=== PATIENT | female | born 1955 | race Two or more races ===

== ENCOUNTER 2018-11-04 04:31 | Inpatient (IN) | payer MEDICAID, OTHER ==
[~2018-11-04] VITALS: Ht 170.2 cm; Wt 98.5 kg
--- NOTE | 2018-11-04 03:43 | NUR ---
DR. HARTLEY MADE AWARE PT IS IN ROOM FROM PACU S/P LAPAROSCOPIC APPENDECTOMY.
[2018-11-04] MEDS ORDERED: ONDANSETRON ODT 4 MG TAB PO ONE (05:00)
[2018-11-04 06:15] LABS: Urine Bacteria FEW /hpf (None Seen); Urine Blood Negative /uL (Negative); Urine Specific Gravity 1.021 (1.001-1.035); Urine WBC <1 /hpf (0 - 5)
[2018-11-04] MEDS ORDERED: SODIUM CHLORIDE 0.9% 1,000 ML IV ONE (06:15)
[2018-11-04] MEDS ORDERED: cefTRIAXone 1GM/50ML D5W 50 ML IV ONE (06:15)
[2018-11-04] MEDS ORDERED: MORPHINE SULFATE 4 MG/ML SYR/VIAL IV ONE (06:45)
[2018-11-04 06:49] LABS: Eosinophils # (auto) 0 uL; Lymphocytes # (auto) 0.8 uL; Mean Corpuscular Volume 99.1 fL (80.0-100.0); White Blood Cell 17.5 10^3/uL (4.4-10.8)
[2018-11-04 06:57] LABS: Basophils # (auto) 0.1 uL; Basophils % (auto) 0.5 % (0.0-2.0); Hematocrit 44.9 % (36.0-46.0); Hemoglobin 15.1 g/dL (12.2-16.2); Lymphocytes % (auto) 4.6 % (10.0-50.0); Mean Corpuscular Hemoglobin 33.4 pg (28.0-32.0); Mean Corpuscular Hgb Conc. 33.7 g/dL (32.0-36.0); Monocytes % (auto) 5.8 % (0.0-12.0); Neutrophils # (auto) 15.6 uL; Neutrophils % (auto) 89.1 % (37.0-80.0); Nucleated Red Blood Cells % 0.1 %; Platelet Count (auto) 303 10^3/uL (140-450); Red Blood Cells 4.53 10^6/uL (4.0-5.20); Red Cell Distribution Width 13.1 % (11.8-14.3)
[2018-11-04 07:06] LABS: Alanine Aminotransferase 51 U/L (13-56); Albumin 4.5 g/dL (3.4-5.0); Anion Gap 10 (5-15); Aspartate Aminotransferase 44 U/L (15-37); BUN/Creatinine Ratio 16.2; Blood Urea Nitrogen 12 mg/dL (7-18); Calcium 9.5 mg/dL (8.5-10.1); Carbon Dioxide 27 mmol/L (21-32); Chloride 101 mmol/L (98-107); GFR African American 103 mL/min; GFR Non-African American 85 mL/min; Glucose 121 mg/dL (74-106); Potassium 4.4 mmol/L (3.5-5.1); Sodium 138 mmol/L (136-145)
[2018-11-04 07:11] LABS: Alkaline Phosphatase 109 U/L (45-117); Bilirubin, Total 0.7 mg/dL (0.2-1.0); Total Protein 8.7 g/dL (6.4-8.2)
[2018-11-04] MEDS ORDERED: ONDANSETRON HCL 4 MG/2 ML VIAL IV PRN (07:15)
[2018-11-04] MEDS ORDERED: SODIUM CHLORIDE 0.9% 1,000 ML IV SCH (07:15)
[2018-11-04] MEDS ORDERED: TEMAZEPAM 15 MG CAP PO PRN (07:15)
[2018-11-04 08:22] LABS: INR < 0.93 (0.9-1.15); Partial Thromboplastin Time 25.9 sec (23.64-32.05)
[2018-11-04] MEDS: metroNIDAZOLE 500MG/100ML 100 ML IV SCH ×3 (08:23→21:36)
[2018-11-04] MEDS: cefTRIAXone 1GM/50ML D5W 50 ML IV SCH (08:24)
[2018-11-04] MEDS ORDERED: POVIDONE IODINE 10 % TOPICAL OINT 30GM TOP ONE (10:20)
[2018-11-04] MEDS ORDERED: MIDAZOLAM HCL 1MG/1ML-2 ML VIAL ONE (10:30)
[2018-11-04] MEDS ORDERED: PROPOFOL 10 MG/ML 20 ML IV ONE (10:30)
[2018-11-04] MEDS ORDERED: NEOSTIGMINE 1 MG/ML INJ (10mg/10ML VIAL) ONE (10:30)
[2018-11-04] MEDS ORDERED: GLYCOPYRROLATE 0.2 MG/ML 1ML VIAL ONE (10:30)
[2018-11-04] MEDS ORDERED: fentaNYL CITRATE 100 MCG/2 ML VL ONE ×2 (10:30→11:37)
[2018-11-04] MEDS ORDERED: ROCURONIUM 10MG/ML 10ML VIAL IV ONE (11:11)
[2018-11-04] MEDS ORDERED: hydrALAZINE HCL 20 MG/ML VL IV PRN (12:00)
[2018-11-04] MEDS ORDERED: MIDAZOLAM HCL 1MG/1ML-2 ML VIAL IV PRN (12:00)
--- NOTE | 2018-11-04 13:13 | NUR ---
RECEIVED REPORT FROM MEGHAN DONIS OF PACU
[2018-11-04 13:30] VITALS: BP 121/77
--- NOTE | 2018-11-04 13:30 | NUR ---
MS admit from PACU BINH LEBLANC admitted to tele/MS after SBAR received. Patient oriented to Tasha Borges, primary RN, unit, room, bed, and unit policies regarding patient care and visiting hours. Patient weighed by bedscale and encouraged to call if they need something. All questions and concerns addressed, patient verbalized understanding. Note: RECEIVED PT FROM PACU VIA BED S/P LAPAROSCOPIC APPENDECTOMY, NOTED 3 SMALL INCISIONS ON ABDOMEN WITH SVEN DRAINING SANGUINEOUS FLUID, WILL CONTINUE TO MONITOR.
[2018-11-04 13:40] VITALS: BP 121/77
[2018-11-04] MEDS: MORPHINE SULFATE 4 MG/ML SYR/VIAL IV PRN ×2 (14:03→19:21)
[2018-11-04 16:58] VITALS: BP 134/77
--- NOTE | 2018-11-04 17:13 | NUR ---
seen by Dr. Mendez, ordered to change IV to D5NS at 50mls per hr, cbc cmp tomorrow , and pt can have water and ice chips.
[2018-11-04] MEDS: HYDROcodone-ACET 5/325MG TAB PO PRN (17:21)
[2018-11-04] MEDS: D5W/SOD CHLO 0.9% 1,000 ML IV SCH (17:59)
--- NOTE | 2018-11-04 19:20 | NUR ---
Opening Shift Note Assumed care of patient, awake and alert. No S/S of distress/SOB or pain. Family at bedside. Three incisions noted to anterior abdomen, one with SVEN drain to bulb suction with sanguinous dressing. Minimal drainage noted on dressings, all drainage outlined. Abdominal binder in place. Incentive spirometer, patient again educated on use, patient verbalized understanding. Instructed on POC and to call for assist PRN, will continue to monitor for changes Q1hr and PRN.
[2018-11-04 22:00] VITALS: BP 114/75
[2018-11-05] MEDS: MORPHINE SULFATE 4 MG/ML SYR/VIAL IV PRN ×5 (03:13→21:12)
[2018-11-05 05:00] VITALS: BP 110/56
[2018-11-05] MEDS: metroNIDAZOLE 500MG/100ML 100 ML IV SCH ×3 (06:09→22:45)
--- NOTE | 2018-11-05 06:15 | NUR ---
SVEN Drain 30 ml of sanguinous fluid emptied from SVEN drain. Drain placed to bulb suction when completed. Patient tolerated well. Will continue to monitor.
[2018-11-05 06:25] LABS: Basophils # (auto) 0 uL; Eosinophils # (auto) 0 uL; Red Blood Cells 3.18 10^6/uL (4.0-5.20); White Blood Cell 10.3 10^3/uL (4.4-10.8)
[2018-11-05 06:27] LABS: Basophils % (auto) 0.1 % (0.0-2.0); Hematocrit 31.6 % (36.0-46.0); Lymphocytes # (auto) 0.8 uL; Lymphocytes % (auto) 7.7 % (10.0-50.0); Mean Corpuscular Hemoglobin 34.5 pg (28.0-32.0); Mean Corpuscular Hgb Conc. 34.6 g/dL (32.0-36.0); Mean Corpuscular Volume 99.6 fL (80.0-100.0); Monocytes # (auto) 0.8 uL; Monocytes % (auto) 7.8 % (0.0-12.0); Neutrophils # (auto) 8.7 uL; Neutrophils % (auto) 84.4 % (37.0-80.0); Platelet Count (auto) 237 10^3/uL (140-450); Red Cell Distribution Width 13.2 % (11.8-14.3)
[2018-11-05 06:49] LABS: Potassium 3.9 mmol/L (3.5-5.1)
[2018-11-05 06:55] LABS: Albumin 2.9 g/dL (3.4-5.0); BUN/Creatinine Ratio 20.3; Bilirubin, Total 0.5 mg/dL (0.2-1.0); Calcium 8.2 mg/dL (8.5-10.1); Total Protein 6.2 g/dL (6.4-8.2)
--- NOTE | 2018-11-05 07:30 | NUR ---
Closing Note Patient lying in bed, awake and alert. No s/s of distress. Care endorsed to dayshift RN.
[2018-11-05] MEDS: cefTRIAXone 1GM/50ML D5W 50 ML IV SCH (08:48)
--- NOTE | 2018-11-05 08:55 | NUR ---
Pt seen by Dr. Long Pt was encouraged to ambulate, ordered to full liquid diet for lunch and soft diet for dinner.
[2018-11-05 09:00] VITALS: BP 106/60
--- NOTE | 2018-11-05 09:10 | NUR ---
Pt is up on chair.
[2018-11-05 13:00] VITALS: BP 115/74
[2018-11-05] MEDS: D5W/SOD CHLO 0.9% 1,000 ML IV SCH (14:31)
[2018-11-05 16:51] VITALS: BP 141/85
--- NOTE | 2018-11-05 17:59 | NUR ---
PT IS PASSING OUT GAS, PT ONLY TOLERATED TRANSFER FROM BED TO CHAIR, PT UNABLE TO TOLERATE WALKING DUE TO PAIN.
--- NOTE | 2018-11-05 19:40 | NUR ---
Opening Shift Note Assumed care of patient, awake and alert. No S/S of distress/SOB or pain. Family at bedside. Three incisions still noted to anterior abdomen, one with SVEN drain to bulb suction with sanguinous dressing. Minimal drainage still noted on dressings. Abdominal binder remains in place. Patient encouraged to use incentive spirometer and to ambulate, educated on reason and importance for both in post-op care, patient verbalized understanding. Instructed on POC and to call for assist PRN, will continue to monitor for changes Q1hr and PRN.
[2018-11-05 22:46] VITALS: BP 126/74
[2018-11-06] MEDS: MORPHINE SULFATE 4 MG/ML SYR/VIAL IV PRN ×3 (01:52→07:33)
--- NOTE | 2018-11-06 05:15 | NUR ---
SVEN Drain 25 ml of sanguinous fluid emptied from SVEN drain. Drain placed to bulb suction when completed. Patient tolerated well. Will continue to monitor.
[2018-11-06 05:32] VITALS: BP 104/75
[2018-11-06] MEDS: metroNIDAZOLE 500MG/100ML 100 ML IV SCH ×2 (06:23→14:00)
--- NOTE | 2018-11-06 07:00 | NUR ---
IV insertion and removal IV to right arm noted to be leaking when flushed. IV access obtained, via clean sterile technique by inserting 22 gauge catheter at right wrist after one attempt by Otis CHRISTIANSON. IV secured properly. No trauma to site. Patient tolerated well. IV to right arm DC'd with clean sterile technique, catheter fully intact. Pressure dressing applied to site. Patient tolerated well.
--- NOTE | 2018-11-06 07:33 | NUR ---
Closing Note Patient sitting up in bed, awake and alert. No s/s of distress. Care endorsed to dayshift RN.
[2018-11-06] MEDS: cefTRIAXone 1GM/50ML D5W 50 ML IV SCH (08:55)
[2018-11-06 09:02] VITALS: BP 110/68
[2018-11-06] MEDS: HYDROcodone-ACET 5/325MG TAB PO PRN (11:10)
--- NOTE | 2018-11-06 12:24 | NUR ---
pt seen by Dr. Ethan Long instructed pt to follow up in his office in [place] next WednesdayNovember 14.
[2018-11-06 13:00] VITALS: BP 104/70
[2018-11-06 13:22] VITALS: BP 103/60
--- NOTE | 2018-11-06 14:25 | NUR ---
Pt educated on how to drain the SVEN drain demonstration done, pt verbalized understanding. SVEN dressing changed. drained 15ml of sanguineous fluid from SEVN drain.
--- NOTE | 2018-11-06 14:45 | NUR ---
Discharge instructions given as ordered. Encourage to follow up with DR. HARTLEY ON NOVEMBER 14, PT TO CALL OFFICE TO CONFIRM TIME OF APPOINTMENT, INSTRUCTED TO CALL DR. KRAUS'S OFFICE ON WEDNESDAY TO MAKE A FOLLOW UP APPOINTMENT, PT VERBALIZED UNDERSTANDING. All questions and concerns addressed. Patient verbalized understanding. Medication reconciliation form completed and copy given to patient. IV removed with catheter intact, pressure dressing applied. Patient taken to vehicle via wheelchair with all personal belongings, accompanied by staff and family member. No distress noted at time of departure.
== END 2018-11-06 14:45 | disposition home or self-care (01) | DRG 234 ==
LOC: ER 04:31 → OVERFLOW 04:32 → WEST WING 13:29
PROVIDERS: ADMIT Nurse Practitioner; ATTEND Internal Medicine
PROC: 0DTJ4ZZ Resection of Appendix, Percutaneous Endoscopic Approach (ICD-10-PCS; principal; 2018-11-04 10:26)
DX: K35.80 Unspecified acute appendicitis (principal); K76.0 Fatty (change of) liver, not elsewhere classified; E66.9 Obesity, unspecified; F17.210 Nicotine dependence, cigarettes, uncomplicated; K21.9 Gastro-esophageal reflux disease without esophagitis; K57.30 Diverticulosis of large intestine without perforation or abscess without bleeding; N20.0 Calculus of kidney; F32.9 Major depressive disorder, single episode, unspecified; I10 Essential (primary) hypertension; M19.90 Unspecified osteoarthritis, unspecified site; Z68.34 Body mass index [BMI] 34.0-34.9, adult; Z88.8 Allergy status to other drugs, medicaments and biological substances; Z79.899 Other long term (current) drug therapy; Z98.51 Tubal ligation status
CPT/HCPCS: 36415; 71045; 74176; 80053; 81001; 83605; 84484; 85025; 85610; 85730; 86850; 86900; 86901; 87040; 93005; 96361; 96365; 96375; G0378; J0696; J2250; J2704; J3490; J7042; Q0162

== ENCOUNTER 2018-11-10 21:47 | Emergency (ER) | payer MEDICAID ==
[~2018-11-10] VITALS: Ht 172.7 cm; Wt 90.7 kg
[2018-11-10 22:48] LABS: Basophils # (auto) 0 uL; Basophils % (auto) 0.7 % (0.0-2.0); Eosinophils # (auto) 0.2 uL; Eosinophils % (auto) 3.3 % (0.0-7.0); Hematocrit 36.5 % (36.0-46.0); Hemoglobin 12.4 g/dL (12.2-16.2); Lymphocytes # (auto) 2.5 uL; Lymphocytes % (auto) 34.9 % (10.0-50.0); Mean Corpuscular Hemoglobin 33.7 pg (28.0-32.0); Mean Corpuscular Hgb Conc. 33.9 g/dL (32.0-36.0); Mean Corpuscular Volume 99.3 fL (80.0-100.0); Monocytes # (auto) 0.8 uL; Monocytes % (auto) 10.4 % (0.0-12.0); Neutrophils # (auto) 3.7 uL; Neutrophils % (auto) 50.7 % (37.0-80.0); Nucleated Red Blood Cells % 0.1 %; Platelet Count (auto) 393 10^3/uL (140-450); Red Blood Cells 3.68 10^6/uL (4.0-5.20); White Blood Cell 7.2 10^3/uL (4.4-10.8)
[2018-11-10 23:02] LABS: Albumin 3.7 g/dL (3.4-5.0); Calcium 8.8 mg/dL (8.5-10.1); Potassium 3.7 mmol/L (3.5-5.1)
[2018-11-10 23:04] LABS: BUN/Creatinine Ratio 17.9
[2018-11-10 23:06] LABS: Bilirubin, Total 0.3 mg/dL (0.2-1.0); Total Protein 7.4 g/dL (6.4-8.2)
[2018-11-11] MEDS ORDERED: MORPHINE SULFATE 4 MG/ML SYR/VIAL IV ONE (04:45)
[2018-11-11] MEDS ORDERED: ONDANSETRON HCL 4 MG/2 ML VIAL IV ONE (04:45)
[2018-11-11] MEDS ORDERED: HYDROcodone-ACET 10/325MG TAB PO ONE (05:15)
[2018-11-11] MEDS ORDERED: ONDANSETRON ODT 4 MG TAB PO ONE (05:15)
[2018-11-11 07:05] LABS: Urine Bacteria NONE SEEN /hpf (None Seen); Urine Blood Negative /uL (Negative); Urine Mucus FEW (None Seen); Urine Specific Gravity 1.032 (1.001-1.035); Urine WBC 6 /hpf (0 - 5)
[2018-11-11 07:20] VITALS: BP 107/58
[2018-11-11] MEDS ORDERED: PIPERACILLIN-TAZOB 3.375GM 100 ML IV ONE (07:45)
[2018-11-11] MEDS ORDERED: cefTRIAXone SOD 1,000 MG VL IM ONE (08:30)
== END 2018-11-11 09:02 | disposition home or self-care (01) ==
LOC: ER 21:47
DX: L03.311 Cellulitis of abdominal wall (principal); K21.9 Gastro-esophageal reflux disease without esophagitis; Z98.51 Tubal ligation status
CPT/HCPCS: 36415; 74176; 80053; 81001; 85025; 87040; 96372; 99284; J0696; J2270; J2405; Q0162

== ENCOUNTER 2021-01-24 10:33 | Inpatient (IN) | payer MEDICAID ==
[~2021-01-24] VITALS: Ht 320 cm; Wt 70.5 kg
[2021-01-24] MEDS ORDERED: ASPirin 81 mg TAB PO ONE (11:00)
[2021-01-24 11:17] LABS: Basophils # (auto) 0 10 ^3/uL (0-0.2); Basophils % (auto) 0.3 % (0.0-2.0); Eosinophils # (auto) 0 10 ^3/uL (0-0.8); Eosinophils % (auto) 0.1 % (0.0-7.0); Lymphocytes % (auto) 17.3 % (10.0-50.0); Neutrophils # (auto) 4.2 10 ^3/uL (1.6-8.6); White Blood Cell 5.7 10^3/uL (4.4-10.8)
[2021-01-24 11:19] LABS: Hematocrit 17.6 % (36.0-46.0); Mean Corpuscular Hemoglobin 34.7 pg (28.0-32.0); Mean Corpuscular Hgb Conc. 34.6 g/dL (32.0-36.0); Mean Corpuscular Volume 100.4 fL (80.0-100.0); Monocytes # (auto) 0.5 10 ^3/uL (0-1.3); Monocytes % (auto) 9.3 % (0.0-12.0); Nucleated Red Blood Cells % 0.1 %; Red Blood Cells 1.76 10^6/uL (4.0-5.20); Red Cell Distribution Width 14.2 % (11.8-14.3)
[2021-01-24 11:24] LABS: Hemoglobin 6.1 g/dL (12.2-16.2)
[2021-01-24 11:38] LABS: Albumin 3.2 g/dL (3.4-5.0); Anion Gap 6 (5-15); Blood Urea Nitrogen 9 mg/dL (7-18); Calcium 8.2 mg/dL (8.5-10.1); Carbon Dioxide 25 mmol/L (21-32); Chloride 105 mmol/L (98-107); Glucose 115 mg/dL (74-106); Magnesium 2.2 mg/dL (1.6-2.6); Potassium 3.6 mmol/L (3.5-5.1); Sodium 136 mmol/L (136-145)
[2021-01-24 11:45] LABS: Alanine Aminotransferase 22 U/L (13-56); Alkaline Phosphatase 54 U/L (45-117); Aspartate Aminotransferase 9 U/L (15-37); BUN/Creatinine Ratio 15.3; Bilirubin, Total 0.4 mg/dL (0.2-1.0); GFR African American 132 mL/min; GFR Non-African American 109 mL/min; Total Protein 6.1 g/dL (6.4-8.2)
[2021-01-24] MEDS ORDERED: MORPHINE SULFATE INJECTION 2 MG/ML SYRG IV PRN ×3 (13:15→17:00)
[2021-01-24] MEDS ORDERED: NITROGLYCERIN 0.4 MG SL TAB SL PRN ×2 (13:15→17:00)
[2021-01-24] MEDS ORDERED: BUPR1MIS SL (14:47)
[2021-01-24] MEDS ORDERED: ESCI5TAB33 PO (14:47)
[2021-01-24] MEDS ORDERED: CLON0.5T10 PO (14:47)
[2021-01-24] MEDS ORDERED: ERGO1CAP12 PO (14:47)
[2021-01-24] MEDS ORDERED: LEVO50TA7 PO (14:47)
[2021-01-24] MEDS ORDERED: VALS1TAB57 PO (14:47)
[2021-01-24] MEDS ORDERED: MIRT1TAB38 PO (14:47)
[2021-01-24] MEDS ORDERED: SUCRALFATE 1 GM/10 ML ORAL SUSP PO ONE (16:30)
[2021-01-24] MEDS ORDERED: PANTOPRAZOLE 40 MG/10 ML VIAL INJ IV ONE (16:30)
[2021-01-24 16:48] LABS: % Iron Saturation 2.9 % (15-50)
[2021-01-24] MEDS ORDERED: DOCUSATE SOD 100 MG CAP PO PRN (17:00)
[2021-01-24] MEDS ORDERED: ALUM & MAG HYDROX-SIMETH LIQ(MAALOX) 30 ML PO PRN (17:00)
[2021-01-24] MEDS ORDERED: hydrALAZINE HCL 20 MG/ML VL IV PRN (17:00)
[2021-01-24] MEDS ORDERED: SODIUM CHLORIDE 0.9% 1,000 ML IV ONE (17:00)
[2021-01-24] MEDS ORDERED: ONDANSETRON HCL 4 MG/2 ML VIAL IV PRN (17:00)
[2021-01-24 17:02] LABS: Folate (Folic Acid) 10.61 ng/mL (5.38-24)
[2021-01-24] MEDS ORDERED: IOHEXOL 350 MG/ML 100ML IJ ONE (17:25)
[2021-01-24] MEDS ORDERED: SODIUM FERR GLUC 62.5MG/5ML 125 MG in SODIUM CHL 0.9% 100 ML IV ONE (17:45)
[2021-01-24 18:34] VITALS: BP 125/61
[2021-01-24 18:35] LABS: Urine Amorphous Crystal FEW /hpf (None Seen); Urine Bacteria FEW /hpf (None Seen); Urine Blood Negative /uL (Negative); Urine Mucus MODERATE (None Seen); Urine Specific Gravity 1.022 (1.001-1.035); Urine WBC 5 /hpf (0 - 5)
[2021-01-24 18:39] LABS: Amphetamine Screen, Urine NEGATIVE (NEGATIVE); Barbiturate Scree,Urine NEGATIVE (NEGATIVE); Benzodiazephine Screen, Urine NEGATIVE (NEGATIVE); Cannabinoid Screen, Urine POSITIVE (NEGATIVE); Cocaine Screen, Urine NEGATIVE (NEGATIVE); Phencyclidine Screen, Urine NEGATIVE (NEGATIVE)
[2021-01-24 18:45] LABS: Cholesterol 150 mg/dL (< 200); HDL Cholesterol 54 mg/dL (40-59); LDL Cholesterol 79 mg/dL (< 100); Triglycerides 105 mg/dL (< 150)
[2021-01-24 18:47] LABS: Opiate Scree,Urine POSITIVE (NEGATIVE)
[2021-01-24 18:49] VITALS: BP 135/77
[2021-01-24 19:03] LABS: Alcohol, Urine < 3.0 mg/dL (0-10)
[2021-01-24] MEDS: HYDROcodone-ACET 5/325MG TAB PO PRN (20:36)
[2021-01-24] MEDS: LORazepam 0.5 MG TAB PO PRN (20:36)
[2021-01-24] MEDS: SUCRALFATE 1 GM/10 ML ORAL SUSP PO SCH (21:40)
[2021-01-24 22:10] VITALS: BP 100/65
[2021-01-24 22:50] VITALS: BP 97/60
[2021-01-24 23:15] VITALS: BP 100/65
[2021-01-24 23:46] VITALS: BP 100/65
[2021-01-25] VITALS (8 sets, daily range): BP systolic 95–117; BP diastolic 48–69
[2021-01-25] MEDS: HYDROcodone-ACET 5/325MG TAB PO PRN ×3 (00:42→20:32)
[2021-01-25] MEDS: SODIUM CHLORIDE 0.9% 1,000 ML IV SCH ×2 (01:31→13:04)
[2021-01-25] MEDS: LORazepam 0.5 MG TAB PO PRN ×3 (02:40→20:32)
[2021-01-25] MEDS: SUCRALFATE 1 GM/10 ML ORAL SUSP PO SCH ×2 (06:38→11:02)
[2021-01-25] MEDS: LEVOTHYROXINE SODIUM 50 MCG TAB PO SCH (06:38)
[2021-01-25 08:29] LABS: Basophils # (auto) 0 10 ^3/uL (0-0.2); Basophils % (auto) 0.3 % (0.0-2.0); Eosinophils # (auto) 0 10 ^3/uL (0-0.8); Hemoglobin 7.4 g/dL (12.2-16.2); Lymphocytes # (auto) 1.3 10 ^3/uL (0.4-5.4); Monocytes # (auto) 0.5 10 ^3/uL (0-1.3); Nucleated Red Blood Cells % 0.1 %
[2021-01-25 08:32] LABS: Eosinophils % (auto) 0.2 % (0.0-7.0); Hematocrit 21.2 % (36.0-46.0); Lymphocytes % (auto) 22.4 % (10.0-50.0); Mean Corpuscular Hemoglobin 32.8 pg (28.0-32.0); Mean Corpuscular Volume 93.7 fL (80.0-100.0); Monocytes % (auto) 8.6 % (0.0-12.0); Neutrophils # (auto) 3.8 10 ^3/uL (1.6-8.6); Neutrophils % (auto) 68.5 % (37.0-80.0); Red Blood Cells 2.27 10^6/uL (4.0-5.20); Red Cell Distribution Width 16.7 % (11.8-14.3); White Blood Cell 5.6 10^3/uL (4.4-10.8)
[2021-01-25 08:42] LABS: INR 0.99 (0.9-1.15); Partial Thromboplastin Time 22.6 sec (23.6-33.0)
[2021-01-25 08:59] LABS: Chloride 109 mmol/L (98-107); Potassium 3.7 mmol/L (3.5-5.1); Sodium 137 mmol/L (136-145)
[2021-01-25] MEDS: SODIUM FERR GLUC 62.5MG/5ML 125 MG in SODIUM CHL 0.9% 100 ML IV SCH ×2 (09:00→10:34)
[2021-01-25 09:11] LABS: Alanine Aminotransferase 19 U/L (13-56); Albumin 2.8 g/dL (3.4-5.0); Alkaline Phosphatase 49 U/L (45-117); Anion Gap 5 (5-15); Aspartate Aminotransferase 7 U/L (15-37); BUN/Creatinine Ratio 19.6; Bilirubin, Total 0.7 mg/dL (0.2-1.0); Blood Urea Nitrogen 9 mg/dL (7-18); Carbon Dioxide 23 mmol/L (21-32); GFR African American 176 mL/min; GFR Non-African American 146 mL/min; Glucose 87 mg/dL (74-106); Total Protein 5.5 g/dL (6.4-8.2)
[2021-01-25] MEDS: BUPRENORPHINE NALOXONE SL SCH (10:00)
[2021-01-25] MEDS ORDERED: VALSARTAN 80 MG TAB PO SCH (10:00)
[2021-01-25] MEDS: PANTOPRAZOLE 40 MG/10 ML VIAL INJ IV SCH ×2 (10:34→20:31)
[2021-01-25] MEDS: CITALOPRAM HYDROBR 20 MG TAB PO SCH (10:34)
[2021-01-25] MEDS ORDERED: SODIUM FERR GLUC 62.5MG/5ML 125 MG in SODIUM CHL 0.9% 100 ML IV SCH (12:00)
[2021-01-25 14:02] LABS: Amylase 59 U/L (25-115); Lipase 169 U/L (73-393)
[2021-01-25 15:04] LABS: Hematocrit 22.3 % (36.0-46.0); Hemoglobin 7.7 g/dL (12.2-16.2)
[2021-01-25] MEDS: SUCRALFATE 1 GM TAB PO SCH ×2 (17:06→20:31)
[2021-01-25 22:55] LABS: Hemoglobin 7.2 g/dL (12.2-16.2)
[2021-01-25 22:58] LABS: Hematocrit 20.9 % (36.0-46.0)
[2021-01-26] MEDS: HYDROcodone-ACET 5/325MG TAB PO PRN ×3 (00:50→09:29)
[2021-01-26] MEDS: LORazepam 0.5 MG TAB PO PRN ×2 (04:43→11:00)
[2021-01-26 05:00] VITALS: BP 124/65
[2021-01-26] MEDS: SUCRALFATE 1 GM TAB PO SCH ×2 (05:13→11:50)
[2021-01-26] MEDS: LEVOTHYROXINE SODIUM 50 MCG TAB PO SCH (05:13)
[2021-01-26 08:15] VITALS: BP 125/71
[2021-01-26 08:26] LABS: Basophils # (auto) 0 10 ^3/uL (0-0.2); Basophils % (auto) 0.6 % (0.0-2.0); Eosinophils # (auto) 0 10 ^3/uL (0-0.8); Eosinophils % (auto) 0.2 % (0.0-7.0); Hematocrit 21.3 % (36.0-46.0); Hemoglobin 7.3 g/dL (12.2-16.2); Lymphocytes # (auto) 0.8 10 ^3/uL (0.4-5.4); Lymphocytes % (auto) 14.1 % (10.0-50.0); Mean Corpuscular Hemoglobin 32.5 pg (28.0-32.0); Mean Corpuscular Hgb Conc. 34.5 g/dL (32.0-36.0); Mean Corpuscular Volume 94.1 fL (80.0-100.0); Monocytes # (auto) 0.6 10 ^3/uL (0-1.3); Monocytes % (auto) 10.6 % (0.0-12.0); Neutrophils # (auto) 4.3 10 ^3/uL (1.6-8.6); Neutrophils % (auto) 74.5 % (37.0-80.0); Nucleated Red Blood Cells % 0.1 %; Red Blood Cells 2.26 10^6/uL (4.0-5.20); Red Cell Distribution Width 16.7 % (11.8-14.3); White Blood Cell 5.8 10^3/uL (4.4-10.8)
[2021-01-26 08:47] LABS: BUN/Creatinine Ratio 13.2; Calcium 7.6 mg/dL (8.5-10.1); Potassium 3.6 mmol/L (3.5-5.1)
[2021-01-26 09:20] VITALS: BP_SYST 125; BP_DIAS 65; BP_DIAS 71
[2021-01-26] MEDS: SODIUM CHLORIDE 0.9% 1,000 ML IV SCH (09:28)
[2021-01-26] MEDS: BUPRENORPHINE NALOXONE SL SCH (10:00)
[2021-01-26] MEDS: PANTOPRAZOLE 40 MG/10 ML VIAL INJ IV SCH (10:01)
[2021-01-26] MEDS: SODIUM FERR GLUC 62.5MG/5ML 125 MG in SODIUM CHL 0.9% 100 ML IV SCH (10:01)
[2021-01-26] MEDS: CITALOPRAM HYDROBR 20 MG TAB PO SCH (10:02)
[2021-01-26 13:15] VITALS: BP 130/74
[2021-01-30] MEDS ORDERED: ERGOCALCIFEROL 50,000 UNIT(1.25MG) CAP PO SCH (10:00)
== END 2021-01-26 14:35 | disposition left against medical advice (07) | DRG 253 ==
LOC: EDBD 10:33 → ER 10:33 → TELE 13:07 → TELE-CENTR 22:22
PROVIDERS: ADMIT Hospitalist; ATTEND Hospitalist
PROC: 30233N1 Transfusion of Nonautologous Red Blood Cells into Peripheral Vein, Percutaneous Approach (ICD-10-PCS; principal; 2021-01-24)
DX: K92.2 Gastrointestinal hemorrhage, unspecified (principal); R64 Cachexia; E44.0 Moderate protein-calorie malnutrition; D62 Acute posthemorrhagic anemia; D53.9 Nutritional anemia, unspecified; Z20.822 Contact with and (suspected) exposure to COVID-19; Z53.29 Procedure and treatment not carried out because of patient's decision for other reasons; E78.5 Hyperlipidemia, unspecified; F17.210 Nicotine dependence, cigarettes, uncomplicated; F32.9 Major depressive disorder, single episode, unspecified; F41.9 Anxiety disorder, unspecified; I10 Essential (primary) hypertension; F32.A Depression, unspecified; K21.9 Gastro-esophageal reflux disease without esophagitis; M25.562 Pain in left knee; F19.90 Other psychoactive substance use, unspecified, uncomplicated; R07.89 Other chest pain; R53.81 Other malaise; R10.13 Epigastric pain; Z88.5 Allergy status to narcotic agent; Z83.3 Family history of diabetes mellitus; Z85.07 Personal history of malignant neoplasm of pancreas; Z85.828 Personal history of other malignant neoplasm of skin; Z79.899 Other long term (current) drug therapy; Z90.49 Acquired absence of other specified parts of digestive tract; Z68.1 Body mass index [BMI] 19.9 or less, adult
CPT/HCPCS: 36415; 71045; 71275; 76830; 76856; 80048; 80053; 80061; 80307; 81001; 82150; 82270; 82607; 82746; 83036; 83540; 83550; 83690; 83735; 83835; 83880; 84100; 84443; 84484; 85014; 85018; 85025; 85610; 85730; 86850; 86900; 86901; 86920; 87040; 87086; 87088; 87186; 87426; 93005; 93306; 96361; 96374; 96375; C9113; G0378; J1756; J2405

== ENCOUNTER 2023-09-12 00:24 | Inpatient (IN) | payer MEDICAID ==
[~2023-09-12] VITALS: Ht 167.6 cm; Wt 66.6 kg
[2023-09-12] VITALS (15 sets, daily range): BP systolic 81–111; BP diastolic 49–67; PULSE 79–110; RESP 16–26; TEMP 98.1–99.2; O2SAT 96–99
[~2023-09-12 00:24] MED LIST: BUPR1MIS SL; CLON0.5T4 PO; ERGO1CAP12 PO; ESCI5TAB20 PO; LEVO50TA7 PO; MIRT1TAB38 PO; VALS1TAB57 PO
[2023-09-12] MEDS: SODIUM CHLORIDE 0.9% 2,000 ML IV ONE (00:45)
[2023-09-12 01:19] LABS: Basophils # (auto) 0 10 ^3/uL (0-0.2); Basophils % (auto) 0.3 % (0.0-2.0); Eosinophils # (auto) 0 10 ^3/uL (0-0.8); Eosinophils % (auto) 0.1 % (0.0-7.0); Hematocrit 16.7 % (36.0-46.0); Lymphocytes # (auto) 1.9 10 ^3/uL (0.4-5.4); Lymphocytes % (auto) 21.5 % (10.0-50.0); Mean Corpuscular Hemoglobin 31.8 pg (28.0-32.0); Mean Corpuscular Volume 93.4 fL (80.0-100.0); Monocytes # (auto) 0.5 10 ^3/uL (0-1.3); Monocytes % (auto) 6.1 % (0.0-12.0); Neutrophils # (auto) 6.5 10 ^3/uL (1.6-8.6); Red Blood Cells 1.79 10^6/uL (4.0-5.20); Red Cell Distribution Width 15.2 % (11.8-14.3)
[2023-09-12 01:21] LABS: Hemoglobin 5.7 g/dL (12.2-16.2)
[2023-09-12 01:32] LABS: INR 1.07 (0.9-1.15); Prothrombin Time 11.3 sec (9.3-11.8)
[2023-09-12 01:37] LABS: Alkaline Phosphatase 48 U/L (46-116); Anion Gap 14 (5-15); Aspartate Aminotransferase < 8 U/L (13-40); BUN/Creatinine Ratio 44.6 (10.0-20.0); Blood Urea Nitrogen 29 mg/dL (9-23); Calcium 7.9 mg/dL (8.7-10.4); Carbon Dioxide 20 mmol/L (20-30); Chloride 110 mmol/L (98-107); Glucose 233 mg/dL (74-106); Lipase 48 U/L (12-53); Potassium 3.7 mmol/L (3.5-5.1); Sodium 144 mmol/L (136-145)
[2023-09-12 01:38] LABS: Alanine Aminotransferase < 9 U/L (7-40); Albumin 2.9 g/dL (3.2-4.8); Bilirubin, Total 0.3 mg/dL (0.2-1.0); Total Protein 4.7 g/dL (5.7-8.2)
[2023-09-12] MEDS: PANTOPRAZOLE 40mg/50ML NS AE 50 ML IV ONE (01:45)
[2023-09-12 03:11] LABS: Lactic Acid w/Reflex 3.5 mmol/L (0.4-2.0)
[2023-09-12] MEDS ORDERED: DOCUSATE SOD 100 MG CAP PO PRN (04:00)
[2023-09-12] MEDS ORDERED: HYDROcodone-ACET 5/325MG TAB PO PRN (04:00)
[2023-09-12] MEDS ORDERED: ACETAMINOPHEN 325 MG TAB PO PRN (04:00)
[2023-09-12] MEDS: SOD CHL 0.45% 500 ML IV ONE (04:30)
[2023-09-12] MEDS: SODIUM CHLORIDE 0.9% 1,000 ML IV SCH (05:06)
[2023-09-12] MEDS: LEVOTHYROXINE SODIUM 50 MCG TAB PO SCH (05:23)
[2023-09-12 06:19] LABS: Albumin 2.7 g/dL (3.2-4.8); Alkaline Phosphatase 43 U/L (46-116); Anion Gap 9 (5-15); Aspartate Aminotransferase < 8 U/L (13-40); BUN/Creatinine Ratio 66.7 (10.0-20.0); Blood Urea Nitrogen 28 mg/dL (9-23); Calcium 7.8 mg/dL (8.7-10.4); Carbon Dioxide 24 mmol/L (20-30); Chloride 112 mmol/L (98-107); Glucose 85 mg/dL (74-106); Potassium 3.2 mmol/L (3.5-5.1); Sodium 145 mmol/L (136-145)
[2023-09-12 06:20] LABS: Bilirubin, Total 0.3 mg/dL (0.2-1.0); Total Protein 4.4 g/dL (5.7-8.2)
[2023-09-12 06:23] LABS: Alanine Aminotransferase < 9 U/L (7-40)
[2023-09-12 07:16] LABS: Basophils # (auto) 0 10 ^3/uL (0-0.2); Basophils % (auto) 0.1 % (0.0-2.0); Eosinophils # (auto) 0 10 ^3/uL (0-0.8); Mean Corpuscular Volume 92.7 fL (80.0-100.0); Monocytes # (auto) 0.8 10 ^3/uL (0-1.3)
[2023-09-12 07:17] LABS: Eosinophils % (auto) 0.1 % (0.0-7.0); Hematocrit 19.2 % (36.0-46.0); Lymphocytes # (auto) 1.3 10 ^3/uL (0.4-5.4); Mean Corpuscular Hemoglobin 32.5 pg (28.0-32.0); Mean Corpuscular Hgb Conc. 35.1 g/dL (32.0-36.0); Monocytes % (auto) 7.2 % (0.0-12.0); Neutrophils # (auto) 8.9 10 ^3/uL (1.6-8.6); Neutrophils % (auto) 80.6 % (37.0-80.0); Red Blood Cells 2.07 10^6/uL (4.0-5.20); Red Cell Distribution Width 14.7 % (11.8-14.3)
[2023-09-12 07:30] LABS: Hemoglobin 6.7 g/dL (12.2-16.2)
[2023-09-12] MEDS ORDERED: NITROGLYCERIN 0.4 MG SL TAB SL PRN (07:30)
[2023-09-12] MEDS ORDERED: MORPHINE SULFATE INJ 2 MG/ml SYRG IV PRN ×2 (07:30→12:00)
[2023-09-12] MEDS: IOHEXOL 300 MG/ML 100ML BOTTLE IJ ONE (12:54)
[2023-09-12] MEDS: metroNIDAZOLE 500MG/100ML 100 ML IV SCH (13:14)
[2023-09-12] MEDS: cefTRIAXone 1GM/50ML D5W 50 ML IV ONE (13:14)
[2023-09-12] MEDS: POTASSIUM CHL 20MEQ/100ML 100 ML IV ONE (13:14)
[2023-09-12 13:44] LABS: Basophils # (auto) 0 10 ^3/uL (0-0.2); Basophils % (auto) 0.3 % (0.0-2.0); Eosinophils # (auto) 0 10 ^3/uL (0-0.8); Eosinophils % (auto) 0.1 % (0.0-7.0); Hemoglobin 9.7 g/dL (12.2-16.2); Lymphocytes # (auto) 1.9 10 ^3/uL (0.4-5.4); Lymphocytes % (auto) 18.7 % (10.0-50.0); Mean Corpuscular Hemoglobin 30.1 pg (28.0-32.0); Mean Corpuscular Hgb Conc. 33.5 g/dL (32.0-36.0); Mean Corpuscular Volume 89.9 fL (80.0-100.0); Monocytes # (auto) 0.7 10 ^3/uL (0-1.3); Monocytes % (auto) 6.4 % (0.0-12.0); Neutrophils # (auto) 7.7 10 ^3/uL (1.6-8.6); Neutrophils % (auto) 74.5 % (37.0-80.0); Nucleated Red Blood Cells % 0.1 %; Red Blood Cells 3.23 10^6/uL (4.0-5.20); Red Cell Distribution Width 16.9 % (11.8-14.3); White Blood Cell 10.3 10^3/uL (4.4-10.8)
[2023-09-12] MEDS: D5W/SOD CHLO 0.9% 1,000 ML IV SCH (14:50)
[2023-09-12] MEDS: ONDANSETRON HCL 4 MG/2 ML VIAL IV PRN (16:28)
[2023-09-12] MEDS: MORPHINE SULFATE INJ 2 MG/ml SYRG IV PRN (16:29)
[2023-09-12 17:58] LABS: Hematocrit 24.5 % (36.0-46.0); Hemoglobin 8.5 g/dL (12.2-16.2)
[2023-09-12] MEDS ORDERED: PANTOPRAZOLE 40 MG/10 ML VIAL INJ IV SCH (22:00)
[2023-09-12] MEDS: PANTOPRAZOLE 40 MG/10 ML VIAL INJ IV SCH (22:21)
[2023-09-13] VITALS (13 sets, daily range): BP systolic 76–114; BP diastolic 42–74; PULSE 74–95; RESP 17–20; TEMP 97.5–98.2; O2SAT 95–100
[2023-09-13 00:26] LABS: Hematocrit 24.3 % (36.0-46.0)
[2023-09-13 00:27] LABS: Hemoglobin 8.1 g/dL (12.2-16.2)
[2023-09-13] MEDS ORDERED: FAMO-12 PO (01:11)
[2023-09-13] MEDS ORDERED: SUCR1TAB PO (01:11)
[2023-09-13] MEDS ORDERED: ZOFR4T PO (01:12)
[2023-09-13] MEDS ORDERED: PANT1INJ3 PO (01:12)
[2023-09-13 06:55] LABS: Basophils # (auto) 0.1 10 ^3/uL (0-0.2); Basophils % (auto) 0.8 % (0.0-2.0); Eosinophils # (auto) 0.1 10 ^3/uL (0-0.8); Hematocrit 26.1 % (36.0-46.0); Hemoglobin 8.8 g/dL (12.2-16.2); Lymphocytes # (auto) 2.2 10 ^3/uL (0.4-5.4); Lymphocytes % (auto) 31.2 % (10.0-50.0); Mean Corpuscular Hgb Conc. 33.7 g/dL (32.0-36.0); Mean Corpuscular Volume 88.9 fL (80.0-100.0); Monocytes # (auto) 0.5 10 ^3/uL (0-1.3); Monocytes % (auto) 7.5 % (0.0-12.0); Neutrophils # (auto) 4.3 10 ^3/uL (1.6-8.6); Neutrophils % (auto) 59.5 % (37.0-80.0); Nucleated Red Blood Cells % 0.1 %; Red Blood Cells 2.94 10^6/uL (4.0-5.20); Red Cell Distribution Width 16.8 % (11.8-14.3); White Blood Cell 7.2 10^3/uL (4.4-10.8)
[2023-09-13 07:45] LABS: Alkaline Phosphatase 43 U/L (46-116); Anion Gap 5 (5-15); Blood Urea Nitrogen 14 mg/dL (9-23); Calcium 7.7 mg/dL (8.5-10.1); Carbon Dioxide 22 mmol/L (20-30); Chloride 116 mmol/L (98-107); Glucose 89 mg/dL (74-106); Potassium 3.7 mmol/L (3.5-5.1); Sodium 143 mmol/L (136-145)
[2023-09-13 07:47] LABS: Albumin 2.7 g/dL (3.2-4.8); Aspartate Aminotransferase 10 U/L (13-40); Bilirubin, Total 0.5 mg/dL (0.2-1.0); Total Protein 4.2 g/dL (5.7-8.2)
[2023-09-13 07:56] LABS: Alanine Aminotransferase < 9 U/L (7-40)
[2023-09-13 08:07] LABS: BUN/Creatinine Ratio 33.3 (10.0-20.0)
[2023-09-13] MEDS: cefTRIAXone 1GM/50ML D5W 50 ML IV SCH (09:26)
[2023-09-13 11:28] LABS: % Iron Saturation 19.1 % (15-50)
[2023-09-13 11:46] LABS: Urine Bacteria FEW /hpf (None Seen); Urine Blood TRACE /uL (Negative); Urine Clarity Clear (Clear); Urine Color Yellow (Yellow); Urine Mucus FEW (None Seen); Urine Protein, UAD Negative (Negative); Urine Specific Gravity 1.025 (1.001-1.035); Urine Urobilinogen Normal (Negative); Urine WBC 2 /hpf (0 - 5)
[2023-09-13] MEDS: SUCRALFATE 1 GM/10 ML ORAL SUSP PO SCH (13:37)
[2023-09-13] MEDS: NICOTINE 14 MG/24HR TOPICAL PATCH TD ONE (13:38)
[2023-09-13] MEDS: SODIUM FERR GLUC 62.5MG/5ML 110 ML IV SCH (13:53)
[2023-09-13] MEDS: ATORVASTATIN 20 MG TAB PO SCH (21:31)
[2023-09-13] MEDS: ACETAMINOPHEN 500 MG TAB PO PRN (23:47)
[2023-09-14] VITALS (8 sets, daily range): BP systolic 102–138; BP diastolic 57–82; PULSE 44–97; RESP 16–18; TEMP 97.7–97.9; O2SAT 91–98
[2023-09-14 07:08] LABS: Anion Gap 8 (5-15); Calcium 8.3 mg/dL (8.7-10.4); Carbon Dioxide 23 mmol/L (20-30); Chloride 113 mmol/L (98-107); Potassium 3.4 mmol/L (3.5-5.1); Sodium 144 mmol/L (136-145)
[2023-09-14 07:13] LABS: Glucose 115 mg/dL (74-106)
[2023-09-14 07:14] LABS: BUN/Creatinine Ratio 15.2 (10.0-20.0); Blood Urea Nitrogen 7 mg/dL (9-23)
[2023-09-14 07:29] LABS: Basophils # (auto) 0 10 ^3/uL (0-0.2); Basophils % (auto) 0.7 % (0.0-2.0); Eosinophils # (auto) 0.1 10 ^3/uL (0-0.8); Eosinophils % (auto) 1.8 % (0.0-7.0); Hematocrit 25.1 % (36.0-46.0); Hemoglobin 8.7 g/dL (12.2-16.2); Lymphocytes # (auto) 1.5 10 ^3/uL (0.4-5.4); Lymphocytes % (auto) 26.2 % (10.0-50.0); Mean Corpuscular Hemoglobin 30.7 pg (28.0-32.0); Mean Corpuscular Hgb Conc. 34.7 g/dL (32.0-36.0); Mean Corpuscular Volume 88.7 fL (80.0-100.0); Monocytes # (auto) 0.5 10 ^3/uL (0-1.3); Monocytes % (auto) 8.9 % (0.0-12.0); Neutrophils # (auto) 3.6 10 ^3/uL (1.6-8.6); Neutrophils % (auto) 62.4 % (37.0-80.0); Red Blood Cells 2.83 10^6/uL (4.0-5.20); Red Cell Distribution Width 16.4 % (11.8-14.3); White Blood Cell 5.8 10^3/uL (4.4-10.8)
[2023-09-14] MEDS: NICOTINE 14 MG/24HR TOPICAL PATCH TD SCH (09:10)
[2023-09-14] MEDS: D5W/SOD CHLO 0.9% 1,000 ML IV SCH (10:45)
[2023-09-14] MEDS: POTASSIUM CHL 20 Meq TABLET PO ONE (12:16)
[2023-09-15 00:56] VITALS: BP 145/78; PULSE 91; RESP 18; TEMP 97.9; O2SAT 99
[2023-09-15 05:00] VITALS: BP 146/65; PULSE 86; RESP 18; TEMP 98; O2SAT 98
[2023-09-15 07:04] LABS: Basophils # (auto) 0 10 ^3/uL (0-0.2); Basophils % (auto) 0.6 % (0.0-2.0); Eosinophils # (auto) 0.1 10 ^3/uL (0-0.8); Eosinophils % (auto) 1.6 % (0.0-7.0); Hematocrit 25.7 % (36.0-46.0); Hemoglobin 8.7 g/dL (12.2-16.2); Mean Corpuscular Hemoglobin 30.5 pg (28.0-32.0); Mean Corpuscular Hgb Conc. 34.1 g/dL (32.0-36.0); Mean Corpuscular Volume 89.4 fL (80.0-100.0); Monocytes # (auto) 0.5 10 ^3/uL (0-1.3); Monocytes % (auto) 8.9 % (0.0-12.0); Neutrophils # (auto) 2.9 10 ^3/uL (1.6-8.6); Neutrophils % (auto) 52.9 % (37.0-80.0); Nucleated Red Blood Cells % 0.1 %; Red Blood Cells 2.87 10^6/uL (4.0-5.20); Red Cell Distribution Width 16.5 % (11.8-14.3); White Blood Cell 5.5 10^3/uL (4.4-10.8)
[2023-09-15 07:28] LABS: Chloride 113 mmol/L (98-107); Potassium 3.1 mmol/L (3.5-5.1); Sodium 140 mmol/L (136-145)
[2023-09-15 07:29] LABS: Anion Gap 2 (5-15); Calcium 8.5 mg/dL (8.5-10.1); Carbon Dioxide 25 mmol/L (20-30)
[2023-09-15 07:34] LABS: Glucose 85 mg/dL (74-106)
[2023-09-15 07:37] LABS: BUN/Creatinine Ratio 11.6 (10.0-20.0); Blood Urea Nitrogen < 5 mg/dL (9-23)
[2023-09-15 08:00] VITALS: PULSE 54; RESP 18; O2SAT 93
[2023-09-15 09:00] VITALS: BP 138/79; PULSE 96; RESP 18; TEMP 97.5; O2SAT 95
[2023-09-15] MEDS ORDERED: PANT40TA2 PO (10:44)
[2023-09-15] MEDS ORDERED: SUCR1SUS26 PO (10:44)
[2023-09-15] MEDS ORDERED: FER325T PO (10:44)
[2023-09-15] MEDS ORDERED: ATOR20TA50 PO (10:50)
[2023-09-15] MEDS ORDERED: NICO14DI9 TD (11:30)
[2023-09-15 13:00] VITALS: BP 127/79; PULSE 56; RESP 18; TEMP 97.6; O2SAT 92
[2023-09-15] MEDS: POTASSIUM CHL 20 Meq TABLET PO ONE (13:00)
[2023-09-15] MEDS: IRON SUCROSE COMPLEX 100 ML IV SCH (13:01)
[2023-09-15 13:08] VITALS: BP 127/79; PULSE 60; RESP 18; TEMP 36.4; O2SAT 93
== END 2023-09-15 14:50 | disposition home or self-care (01) | DRG 241 ==
LOC: ER 00:24 → EDBD 00:24 → TELE 07:30 → TELE-EAST 22:59 → EAST 09-14 12:27
PROVIDERS: ADMIT Nurse Practitioner Family; ATTEND Internal Medicine
PROC: 30233N1 Transfusion of Nonautologous Red Blood Cells into Peripheral Vein, Percutaneous Approach (ICD-10-PCS; principal; 2023-09-13)
DX: K27.4 Chronic or unspecified peptic ulcer, site unspecified, with hemorrhage (principal); G93.41 Metabolic encephalopathy; E44.0 Moderate protein-calorie malnutrition; I95.9 Hypotension, unspecified; K76.0 Fatty (change of) liver, not elsewhere classified; D62 Acute posthemorrhagic anemia; K29.90 Gastroduodenitis, unspecified, without bleeding; K56.7 Ileus, unspecified; F32.A Depression, unspecified; E87.6 Hypokalemia; I10 Essential (primary) hypertension; E03.9 Hypothyroidism, unspecified; K21.9 Gastro-esophageal reflux disease without esophagitis; K43.9 Ventral hernia without obstruction or gangrene; Z88.8 Allergy status to other drugs, medicaments and biological substances; Z79.899 Other long term (current) drug therapy; Z82.49 Family history of ischemic heart disease and other diseases of the circulatory system; Z83.3 Family history of diabetes mellitus; Z80.0 Family history of malignant neoplasm of digestive organs; Z80.8 Family history of malignant neoplasm of other organs or systems; Z86.73 Personal history of transient ischemic attack (TIA), and cerebral infarction without residual deficits; Z68.23 Body mass index [BMI] 23.0-23.9, adult
CPT/HCPCS: 36415; 70450; 71045; 74177; 80048; 80053; 81001; 82728; 83036; 83540; 83550; 83605; 83615; 83690; 84443; 85014; 85018; 85025; 85045; 85610; 86850; 86900; 86901; 86920; 93005; C9113; G0378; J1756; J2405; J3480; J3490; J7042

== ENCOUNTER 2023-12-11 16:29 | Inpatient (IN) | payer MEDICAID ==
[~2023-12-11] VITALS: Ht 157.5 cm; Wt 58.7 kg
[~2023-12-11 16:29] MED LIST changes: +ATOR20TA50 PO; +FAMO-12 PO; +FER325T PO; +NICO14DI9 TD; +PANT1INJ3 PO; +PANT40TA2 PO; +SUCR1SUS26 PO; +SUCR1TAB PO; +ZOFR4T PO
[2023-12-11] MEDS: PANTOPRAZOLE 40 MG/10 ML VIAL INJ IV ONE (18:15)
[2023-12-11] MEDS: LIDOCAINE VISCOUS 2% 15ML UD PO ONE (18:15)
[2023-12-11 18:41] LABS: Basophils # (auto) 0 10 ^3/uL (0-0.2); Basophils % (auto) 0.3 % (0.0-2.0); Eosinophils # (auto) 0 10 ^3/uL (0-0.8); Hemoglobin 12.2 g/dL (12.2-16.2); Lymphocytes # (auto) 1.1 10 ^3/uL (0.4-5.4); Lymphocytes % (auto) 12.8 % (10.0-50.0); Mean Corpuscular Hemoglobin 29.5 pg (28.0-32.0); Mean Corpuscular Hgb Conc. 33.9 g/dL (32.0-36.0); Monocytes # (auto) 0.5 10 ^3/uL (0-1.3); Monocytes % (auto) 5.9 % (0.0-12.0); Neutrophils # (auto) 7.2 10 ^3/uL (1.6-8.6); Nucleated Red Blood Cells % 0.1 %; Platelet Count (auto) 599 10^3/uL (140-450); Red Blood Cells 4.14 10^6/uL (4.0-5.20); Red Cell Distribution Width 17.4 % (11.8-14.3); White Blood Cell 8.9 10^3/uL (4.4-10.8)
[2023-12-11 18:59] LABS: Alanine Aminotransferase 10 U/L (7-40); Alkaline Phosphatase 88 U/L (46-116); Anion Gap 5 (5-15); Blood Urea Nitrogen 8 mg/dL (9-23); Calcium 10.5 mg/dL (8.7-10.4); Carbon Dioxide 30 mmol/L (20-30); Chloride 103 mmol/L (98-107); Glucose 110 mg/dL (74-106); Lipase 42 U/L (12-53); Potassium 3.3 mmol/L (3.5-5.1); Sodium 138 mmol/L (136-145)
[2023-12-11 19:00] LABS: Albumin 4.8 g/dL (3.2-4.8); Aspartate Aminotransferase 9 U/L (13-40); Bilirubin, Total 0.4 mg/dL (0.2-1.0); Total Protein 7.3 g/dL (5.7-8.2)
[2023-12-11] MEDS ORDERED: ACETAMINOPHEN 325 MG TAB PO PRN (21:30)
[2023-12-11] MEDS ORDERED: ONDANSETRON HCL 4 MG/2 ML VIAL IV PRN (21:30)
[2023-12-11] MEDS: POTASSIUM CHL 20 Meq TABLET PO ONE (21:47)
[2023-12-11] MEDS: ATORVASTATIN 20 MG TAB PO SCH (21:48)
[2023-12-11] MEDS ORDERED: NITROGLYCERIN 0.4 MG SL TAB SL PRN (22:45)
[2023-12-11] MEDS ORDERED: MORPHINE SULFATE INJ 2 MG/ml SYRG IV PRN (22:45)
[2023-12-12 05:37] LABS: Eosinophils # (auto) 0.1 10 ^3/uL (0-0.8); Eosinophils % (auto) 0.9 % (0.0-7.0); Hematocrit 31.3 % (36.0-46.0); Lymphocytes # (auto) 2.1 10 ^3/uL (0.4-5.4); Monocytes # (auto) 0.7 10 ^3/uL (0-1.3)
[2023-12-12 05:44] LABS: Basophils # (auto) 0 10 ^3/uL (0-0.2); Basophils % (auto) 0.7 % (0.0-2.0); Lymphocytes % (auto) 31.1 % (10.0-50.0); Mean Corpuscular Hemoglobin 30.4 pg (28.0-32.0); Mean Corpuscular Hgb Conc. 34.9 g/dL (32.0-36.0); Monocytes % (auto) 10.1 % (0.0-12.0); Neutrophils % (auto) 57.2 % (37.0-80.0); Platelet Count (auto) 518 10^3/uL (140-450); Red Cell Distribution Width 17.4 % (11.8-14.3); White Blood Cell 6.9 10^3/uL (4.4-10.8)
[2023-12-12 05:51] LABS: Alkaline Phosphatase 74 U/L (46-116); Anion Gap 6 (5-15); BUN/Creatinine Ratio 14.3 (10.0-20.0); Blood Urea Nitrogen 9 mg/dL (9-23); Carbon Dioxide 29 mmol/L (20-30); Chloride 105 mmol/L (98-107); Glucose 85 mg/dL (74-106); Potassium 3.2 mmol/L (3.5-5.1); Sodium 140 mmol/L (136-145)
[2023-12-12 05:53] LABS: Albumin 4.3 g/dL (3.2-4.8); Aspartate Aminotransferase 8 U/L (13-40); Bilirubin, Total 0.4 mg/dL (0.2-1.0); Total Protein 6.8 g/dL (5.7-8.2)
[2023-12-12 05:58] LABS: Alanine Aminotransferase < 9 U/L (7-40)
[2023-12-12] MEDS: LEVOTHYROXINE SODIUM 50 MCG TAB PO SCH (06:22)
[2023-12-12 08:00] VITALS: RESP 20; O2SAT 94
[2023-12-12 09:47] LABS: Urine Bacteria None Seen /hpf (None Seen)
[2023-12-12 10:17] LABS: Urine Blood Negative /uL (Negative); Urine Mucus FEW (None Seen); Urine Protein, UAD 1+ (Negative); Urine Specific Gravity 1.017 (1.001-1.035); Urine Urobilinogen Normal (Negative); Urine WBC 27 /hpf (0 - 5); Urine WBC Clumps PRESENT /hpf (None Seen)
[2023-12-12 10:18] LABS: Urine Clarity TURBID (Clear); Urine Color Yellow (Yellow)
[2023-12-12] MEDS: DOCUSATE SOD 100 MG CAP PO PRN (10:23)
[2023-12-12] MEDS: PANTOPRAZOLE 40 MG/10 ML VIAL INJ IV SCH (10:24)
[2023-12-12] MEDS: ENOXAPARIN SOD 40 MG/0.4 ML SYRINGE SC SCH (10:24)
[2023-12-12] MEDS: SOD CHL 0.9%/ KCL 40MEQ 1,000 ML IV SCH (14:28)
[2023-12-12] MEDS: HYDROcodone-ACET 5/325MG TAB PO PRN (14:40)
[2023-12-12 16:50] VITALS: BP 100/55; PULSE 84; RESP 16; TEMP 97; O2SAT 98
[2023-12-12 18:30] VITALS: O2SAT 96
[2023-12-12] MEDS ORDERED: ACET-1908 PO (19:23)
[2023-12-12] MEDS ORDERED: PANT40TA57 PO (19:43)
[2023-12-12 20:00] VITALS: PULSE 83
[2023-12-12 21:00] VITALS: BP 111/66; PULSE 75; RESP 18; TEMP 97.8; O2SAT 98
[2023-12-13] VITALS (8 sets, daily range): BP systolic 106–127; BP diastolic 63–72; PULSE 52–66; RESP 8–20; TEMP 97.3–98; O2SAT 95–99
[2023-12-13] MEDS ORDERED: SODIUM CHLORIDE LOCK 10 ML ONE (07:55)
[2023-12-13] MEDS: fentaNYL CITRATE 100 MCG/2 ML VL ONE (08:16)
[2023-12-13] MEDS: LIDOCAINE VISCOUS 2% 15ML UD ONE (08:16)
[2023-12-13] MEDS: diphenhdrAMINE HCL 50 MG/1 ML VL ONE (08:16)
[2023-12-13] MEDS: MIDAZOLAM HCL 5 MG/ML-1ML VIAL ONE (08:16)
[2023-12-13] MEDS: PANTOPRAZOLE 40 MG/10 ML VIAL INJ IV SCH (09:38)
[2023-12-13] MEDS ORDERED: SUCRALFATE 1 GM/10 ML ORAL SUSP GT SCH (11:30)
[2023-12-13] MEDS: SUCRALFATE 1 GM/10 ML ORAL SUSP PO SCH (14:35)
[2023-12-13 14:50] LABS: Chloride 109 mmol/L (98-107); Potassium 4.1 mmol/L (3.5-5.1); Sodium 140 mmol/L (136-145)
[2023-12-13 14:51] LABS: Anion Gap 6 (5-15); Carbon Dioxide 25 mmol/L (20-30)
[2023-12-13 14:52] LABS: Calcium 8.8 mg/dL (8.7-10.4)
[2023-12-13 14:56] LABS: BUN/Creatinine Ratio 13.8 (10.0-20.0); Blood Urea Nitrogen 8 mg/dL (9-23); Glucose 93 mg/dL (74-106)
[2023-12-14] VITALS: BP 111/63; PULSE 63; RESP 18; TEMP 98.7; O2SAT 98
[2023-12-14 04:00] VITALS: BP 104/64; PULSE 70; RESP 18; TEMP 97.9; O2SAT 100
[2023-12-14 08:00] VITALS: PULSE 66; RESP 18; O2SAT 99
[2023-12-14 09:48] VITALS: BP 130/79; PULSE 66; RESP 15; TEMP 98.4; O2SAT 99
[2023-12-14 12:16] VITALS: BP 137/69; PULSE 77; RESP 16; TEMP 98.3; O2SAT 95
== END 2023-12-14 16:40 | disposition home or self-care (01) | DRG 241 ==
LOC: EDBD 16:29 → ER 16:29 → TELE 22:39 → TELE-EAST 12-12 17:13 → EAST 12-13 17:39
PROVIDERS: ADMIT Nurse Practitioner Family; ATTEND Nurse Practitioner Acute Care
PROC: 0DJ08ZZ Inspection of Upper Intestinal Tract, Via Natural or Artificial Opening Endoscopic (ICD-10-PCS; principal; 2023-12-13 08:13)
DX: K27.9 Peptic ulcer, site unspecified, unspecified as acute or chronic, without hemorrhage or perforation (principal); D75.839 Thrombocytosis, unspecified; K29.80 Duodenitis without bleeding; K29.70 Gastritis, unspecified, without bleeding; K43.9 Ventral hernia without obstruction or gangrene; E03.9 Hypothyroidism, unspecified; I10 Essential (primary) hypertension; F31.9 Bipolar disorder, unspecified; E87.6 Hypokalemia; F17.200 Nicotine dependence, unspecified, uncomplicated; Z82.49 Family history of ischemic heart disease and other diseases of the circulatory system; Z83.3 Family history of diabetes mellitus; Z80.0 Family history of malignant neoplasm of digestive organs; Z80.8 Family history of malignant neoplasm of other organs or systems
CPT/HCPCS: 36415; 43235; 74176; 80048; 80053; 80329; 81001; 83605; 83690; 84443; 84484; 85025; 93005; 96374; 97163; G0378; J2250; J2470